=== PATIENT | female | born 1965 ===

== ENCOUNTER 2023-02-21 15:39 | Inpatient (IN) | payer OTHER ==
[~2023-02-21] VITALS: Ht 162.6 cm; Wt 61.4 kg
[2023-02-21 17:00] VITALS: BP 123/72; PULSE 81; TEMP 98.2
--- NOTE | 2023-02-21 17:01 | NUR ---
1357-RECEIVED A CALL FROM CHANNING LEMUS FROM [facility] REQUESTING TO SPEAK TO ORHTO ON-CALL REGARDING A LEFT HIP FRACTURE AND POSSIBLE TRANSFER. CALL TRANSFERRED TO ORTHO MANOHAR SNELL. 1420-RECEIVED A CALL FROM [facility] AGAIN STATING THAT ORTHO SAID THEY WOULD BE ABLE TO OPERATE ON THIS PATIENT BUT WOULD LIKE HOSPITALIST TO ADMIT. CALL TRANSFERRED TO DR. MARINELLI WHO ACCEPTS PATIENT FOR INPATIENT STATUS. 1510-BED ASSIGNMENT GIVEN TO [facility] RNSWEETIE.
[2023-02-21] MEDS ORDERED: Naloxone 0.4 MG/ML VIAL IV PRN (17:45)
[2023-02-21] MEDS ORDERED: oxyCODONE 5 MG TAB PO PRN (17:45)
[2023-02-21] MEDS ORDERED: D5 1/2 NS 1,000 ML IV SCH (17:45)
[2023-02-21] MEDS ORDERED: Morphine 4 MG/ML VIAL IV PRN ×2 (17:45→20:45)
[2023-02-21] MEDS ORDERED: TYLENOL 500MG500 MG PO (17:53)
--- NOTE | 2023-02-21 18:00 | NUR ---
Notified RT of pt having an order for an IS
[2023-02-21 18:03] VITALS: BP_SYST 123
[2023-02-21 18:30] LABS: BASO % 0.3 % (0.0-2.0); EOS # 0.1 K/mm3 (0.0-0.7); EOS % 0.6 % (0.0-4.0); GRAN # 7.8 K/mm3 (1.4-6.5); HEMATOCRIT 38.5 % (37.0-47.0); HEMOGLOBIN 13.3 g/dl (12.5-16.0); LYMPH # 1.8 K/mm3 (1.2-3.4); LYMPH % 17.2 % (20.0-51.0); MEAN CELL VOLUME 99 fl (80.0-100.0); MEAN CORPUSCULAR HEMOGLOBIN 34 pg (27-31); MEAN CORPUSCULAR HGB CONC 35 g/dl (33.0-37.0); MEAN PLATELET VOLUME 10.5 fl (7.4-10.4); MONO # 0.8 K/mm3 (0.1-0.6); MONO % 7.7 % (1.7-9.3); PLATELET COUNT 184 K/mm3 (130-400); REDCELL DISTRIBUTION WIDTH-CV 12.7 % (11.5-14.5)
[2023-02-21] MEDS ORDERED: Acetaminophen 500 MG TAB PO SCH (18:30)
--- NOTE | 2023-02-21 18:30 | NUR ---
Pt recently arrived to the floor via EMS. Pt is alert and oriented with some pain complaints to her left hip. Placed eliu hose to her right leg and SCDs bilaterally. IVF infusing to her right hand. ICE pack to her left hip. GORDO Garcia, Elmo SNELL and Dr Jain have all been in pt room. Lab worked completed and radiology in to do xray. Pt has ordered dinner for tonight and is aware that she cannot have anything to eat or drink after midnight. Admission and med rec is complete.
[2023-02-21 18:44] LABS: PROTHROMBIN TIME 10.7 SECONDS (9.7-12.8)
[2023-02-21 18:48] LABS: ALBUMIN 3.9 gm/dL (3.5-5.0); BILIRUBIN,TOTAL 0.5 mg/dL (0.2-1.2); CALCIUM 9.1 mg/dL (8.4-10.2); CREATININE, serum 0.69 mg/dL (0.57-1.11); POTASSIUM 3.7 mmol/L (3.5-4.5); TOTAL PROTEIN 6.6 gm/dL (6.2-8.1)
[2023-02-21 19:28] LABS: CHOLESTEROL RISK RATIO 2.8; MAGNESIUM 1.9 mg/dL (1.6-2.6)
[2023-02-21] MEDS ORDERED: Pantoprazole 40 MG in NS 10 ML IV SCH (19:33)
[2023-02-21 20:00] VITALS: BP 124/74; PULSE 93; TEMP 98.9
[2023-02-21] MEDS ORDERED: Potassium Bicarbonate/Citrate 20 MEQ Effervescent TAB PO SCH (20:00)
[2023-02-21] MEDS ORDERED: *Potassium Replacement Protocol MC SCH (20:00)
[2023-02-21 20:03] LABS: COLLECTION METHOD CATHETER
[2023-02-21 20:04] LABS: PH 5.5 (5.0-8.5); URINE APPEARANCE Clear (CLEAR/HAZY); URINE BLOOD Negative (NEGATIVE); URINE COLOR Yellow (YELLOW); URINE GLUCOSE Negative (NEGATIVE); URINE KETONE TRACE (NEGATIVE); URINE NITRATE Negative (NEGATIVE); URINE PROTEIN(semi-quant) Negative (NEGATIVE); URINE UROBILINOGEN 0.2 E.U/dL (0.2-1.0)
[2023-02-21 20:13] LABS: SQUAMOUS EPITHELIAL 0-2 /hpf (0-10); URINE BACTERIA Rare /hpf (NONE SEEN); URINE RBC 0-2 /hpf (0-2)
[2023-02-21 21:00] VITALS: BP_SYST 124
--- NOTE | 2023-02-21 21:05 | NUR ---
PT IN BED, REPORTS PAIN 09/20. SCHEDULED MOTRIN GIVEN. NOTIFIED SAIMA SNELL OF PTS PAIN LEVEL, CHANGES MORPHINE TO Q2H PRN PAIN. MEDICATED WITH MORPHINE NOW. HAS DE JESUS TO BSD WITH YELLOW URINE. HAS IVF TO RT HAND INFUSING WITHOUT DIFFICULTY. HAS INT TO LAC, FLUSHES WELL. ABRASIONS TO RT HAND NOTED. PT IS ALERT AND ORIENTED X4. WILL BE NPO AT MIDNIGHT.
[2023-02-21] MEDS ORDERED: Ibuprofen 800 MG TAB PO SCH (21:30)
--- NOTE | 2023-02-21 22:30 | NUR ---
PT DENIES NEED FOR PAIN MEDS AT THIS TIME. TAKES LAST DOSE OF POTASSIUM ORALLY.
[2023-02-21 23:32] VITALS: BP 119/71; PULSE 83; TEMP 98.5
[2023-02-22] VITALS (16 sets, daily range): BP systolic 92–119; BP diastolic 45–84; PULSE 73–88; TEMP 98–98.5
--- NOTE | 2023-02-22 04:00 | NUR ---
PT REPORTS NO NEED FOR STRONGER PAIN MEDS, TAKES SCHEDULED MOTRIN FOR NECK PAIN.
--- NOTE | 2023-02-22 09:05 | NUR ---
workers' compensation claims supervisor met with pt to complete discharge planning. Pt reports she lives alone in [place]. [facility]. She lists her contact as son, Mahin Guillen [phone]. She reports to work at [employer] and that is where her fall occured. Pt says this stay should be billed by Worker's Comp. JACQUELINE advised she will tell the State Comptroller [place] to discuss this claim. Pt reports to be independent with ADLS and uses no DME. She does not have a DPOA-HC and declines one at this time. She says she has 3 children. Pt reports she has stairs at home and this is a slight concern for her to manage. She tells JACQUELINE that she has co-workers who live nearby and her daughter will be staying with in the coming days for the next week. JACQUELINE informed her PT/OT will eval her and determine her needs moving forward. JACQUELINE called Cary with [employer] and informed her of the Worker's Comp claim. JACQUELINE noted PT/OT is ordered. Discharge Plan: tbd
--- NOTE | 2023-02-22 10:09 | NUR ---
Initial visit; Patient thanked Reproducer for looking in on her and offering encouragement and God's blessings. Mitchell was receptive to being kept in Reproducer's prayers.
--- NOTE | 2023-02-22 10:46 | NUR ---
Pt does not have IS in the room, RT notified. Pt otherwise doing well. Awaiting surgery
[2023-02-22] MEDS ORDERED: dexAMETHasone 10 MG/ML VIAL ONE (11:07)
[2023-02-22] MEDS ORDERED: fentaNYL 50 MCG/ML 2 ML VIAL ONE (11:07)
[2023-02-22] MEDS ORDERED: Midazolam 2 MG/2 ML VIAL ONE (11:07)
[2023-02-22] MEDS ORDERED: LR 1,000 ML IV SCH (12:00)
--- NOTE | 2023-02-22 12:22 | NUR ---
Pt off the floor for surgery at this time
[2023-02-22] MEDS ORDERED: Tranexamic Acid 1,000 MG/10 ML VIAL ONE (13:22)
[2023-02-22] MEDS ORDERED: hydrALAZINE 20 MG/ML 1 ML VIAL IV PRN (14:00)
[2023-02-22] MEDS ORDERED: fentaNYL 50 MCG/ML 2 ML VIAL IV PRN (14:00)
[2023-02-22] MEDS ORDERED: Ondansetron 4 MG/2 ML VIAL IV PRN ×2 (14:00→15:00)
[2023-02-22] MEDS ORDERED: Meperidine 50 MG/ML 1 ML VIAL IV PRN (14:00)
[2023-02-22] MEDS ORDERED: HYDROmorphone 2 MG/1 ML VIAL IV PRN (14:00)
[2023-02-22] MEDS ORDERED: Magnes Hydrox (MOM) 80 MG/ML 30 ML CUP PO PRN (15:00)
[2023-02-22] MEDS ORDERED: Naloxone 0.4 MG/ML VIAL IV PRN (15:00)
[2023-02-22] MEDS ORDERED: NS 1,000 ML IV SCH (15:00)
[2023-02-22] MEDS ORDERED: oxyCODONE 5 MG TAB PO PRN (15:00)
[2023-02-22] MEDS ORDERED: Topical Skin Adhesive 1 EACH (1 ML) TOP ONE (15:05)
[2023-02-22] MEDS ORDERED: Acetaminophen 500 MG TAB PO SCH ×2 (15:47→17:00)
[2023-02-22] MEDS ORDERED: Naproxen 250 MG TAB PO SCH ×2 (18:47→19:00)
[2023-02-22] MEDS ORDERED: ceFAZolin 1 G in Water For Injection,Sterile 10 ML IV SCH ×2 (18:47→20:00)
[2023-02-22] MEDS ORDERED: Sennosides/Docusate 8.6-50 MG TAB PO SCH (21:00)
[2023-02-23] VITALS (12 sets, daily range): BP systolic 94–134; BP diastolic 56–76; PULSE 69–91; TEMP 97.6–98.4
[2023-02-23] MEDS ORDERED: Melatonin 3 MG TAB PO SCH (01:09)
[2023-02-23 07:21] LABS: INR 0.9 (0.8-3.0); PROTHROMBIN TIME 10.1 SECONDS (9.7-12.8)
[2023-02-23 07:23] LABS: HEMATOCRIT 30.2 % (37.0-47.0)
--- NOTE | 2023-02-23 09:20 | NUR ---
PATIENT ALERT AND ORIENTED X4. VSS. PATIENT HERE FOR LEFT HIP FRACTURE. AQUACELL TO LEFT HIP CDI. PATIENT REPORTS PAIN 4/10, REQUESTS PAIN MEDICATION. IV TO LEFT AC, INT AND FLUSHES WELL. IV TO RIGHT HAND INT AND FLUSHES WELL. DE JESUS REMOVED. PATIENT TOLERATED WELL. PATIENT DENIES ANY FURTHER NEEDS. CALL LIGHT IN REACH. BED ALARM ON.
[2023-02-23 09:49] LABS: CALCIUM 8.9 mg/dL (8.4-10.2); CREATININE, serum 0.65 mg/dL (0.57-1.11); POTASSIUM 4.2 mmol/L (3.5-4.5)
[2023-02-24] VITALS (12 sets, daily range): BP systolic 90–103; BP diastolic 54–65; PULSE 78–95; TEMP 98–98.7
--- NOTE | 2023-02-24 08:00 | NUR ---
pt a&ox3 resting in bed. meds given and assessment complete. pt rates pain a 6/10, roxicodone given per emar. left hip dressing is cdi. scds and teds to ble. INT ot right hand and left AC are patent. assisted pt to bathroom and to sink for hygeine care. pt transfered to recliner for breakfast. fall precautions in place. pt denies needs at this time. call light in reach.
[2023-02-24 10:16] LABS: PROTHROMBIN TIME 11.3 SECONDS (9.7-12.8)
[2023-02-24] MEDS ORDERED: ASPI325T6 PO (10:17)
[2023-02-24] MEDS ORDERED: TYLENOL 500MG500 MG PO (10:18)
[2023-02-24] MEDS ORDERED: ROXICODONE 55 MG/TAB PO (10:19)
[2023-02-24] MEDS ORDERED: DURICEF 500MG500 MG PO (10:22)
--- NOTE | 2023-02-24 11:56 | NUR ---
SW met with patient to provide list of HH agencies- Patient is set to d/c on Saturday as her daughter will be coming in from out of area to support patient. Patient selected [facility] for HH; SW will pass information along to SW/team for referral to be set on Saturday at discharge.
[2023-02-25 00:27] VITALS: BP_SYST 94
[2023-02-25 03:43] VITALS: BP 97/64; PULSE 81; TEMP 98.2
[2023-02-25 04:00] VITALS: BP_SYST 97
[2023-02-25 07:34] LABS: PROTHROMBIN TIME 11.3 SECONDS (9.7-12.8)
[2023-02-25 08:00] VITALS: BP 114/67; PULSE 86; TEMP 98.8
--- NOTE | 2023-02-25 08:30 | NUR ---
pt a&ox3 resting in bed waiting for breakfast. meds given and assessment complete. vss. pt reports feeling better this morning and having less pain. aquacell to left hip is cdi. teds and scds to ble. INT to left ac patent. pt to discharge today. denies needs at this time. call light in reach.
[2023-02-25 09:01] VITALS: BP_SYST 114
--- NOTE | 2023-02-25 12:50 | NUR ---
INT discontinued. discharge instructions given to pt, all questions answered. pt recieved walker from supply store. pt escorted by wheelchair to personal vehicle.
--- NOTE | 2023-02-25 16:08 | NUR ---
Soaking Room Operator contacted Rj at [facility] and faxed referral with discharge orders. Rj advised she will get in touch with patient's workmans comp guest experience representative to work out a contract for payment. Patient needs a front wheeled walker and stool riser to go home. JACQUELINE ordered both of these items from [facility]. The walker will be delivered to patient's room, then the stool riser will be delivered to patient's home as patient is taking an Uber home. Patient's daughter is planning to arrive tomorrow to provide additional support.
== END 2023-02-25 12:50 | disposition home or self-care (01) | DRG 522 ==
LOC: SURG 15:39
PROVIDERS: Internal Medicine; Nurse Practitioner Family; Orthopaedic Surgery; ADMIT Internal Medicine
PROC: 0SRB0J9 Replacement of Left Hip Joint with Synthetic Substitute, Cemented, Open Approach (ICD-10-PCS; principal; 2023-02-21)
DX: S72.002A Fracture of unspecified part of neck of left femur, initial encounter for closed fracture (principal); F17.200 Nicotine dependence, unspecified, uncomplicated; Z66 Do not resuscitate
CPT/HCPCS: A6197; A9284; C1713; C1776; C9113; J0690; J1100; J2250; J2270; J2704; J2795; J3010; J7120